=== PATIENT | female | born 2000 | race Two or more races ===

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

== ENCOUNTER → 2023-02-24 | Outpatient (REF) | payer OTHER ==
[~2023-02-24] MED LIST changes: +ACET500T15 PO; -ACET50TAOT PO; -OLOP1OPD OU; +PATA2.5S OU
== END ==
LOC: M LAB REF 16:18
PROVIDERS: ATTEND Nurse Practitioner Family
DX: R30.0 Dysuria (principal)